=== PATIENT | male | born 1980 | race Hispanic/Latino ===

== ENCOUNTER 2023-07-20 19:02 | Emergency (ER) | payer SELFPAY ==
[2023-07-20] VITALS (10 sets, daily range): BP systolic 139–149; BP diastolic 95–106; PULSE 74–95; RESP 16–23; TEMP 36.1; O2SAT 94–100
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
--- NOTE | 2023-07-20 19:15 | PC.NURSE ---
ER Provider at the bedside
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
--- NOTE | 2023-07-20 19:30 | PC.NURSE ---
[facility] [employer] at the bedside
--- NOTE | 2023-07-20 19:35 | PC.NURSE ---
patient transported to radiology
[2023-07-20] MEDS: TETANUS,DIPHTHERIA,AC PERTUSSIS ADULT 0.5 ML (ADACEL) IM (19:51)
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
--- NOTE | 2023-07-20 20:30 | PC.NURSE ---
c collar removed by ed provider
--- NOTE | 2023-07-20 20:36 | PC.NURSE ---
blood pressure cuff not reading. adjusted cuff and restarted machine.
[2023-07-20] MEDS: LIDOCAINE HCL 1% LOCAL INJ 10 ML VIAL INFILTRATE (21:30)
--- NOTE | 2023-07-20 21:31 | PC.NURSE ---
lidocaine given to er provider for suture repair of left arm
--- NOTE | 2023-07-20 22:00 | PC.NURSE ---
ER provider at the bedside completing laceration repair
--- NOTE | 2023-07-20 22:13 | PC.NURSE ---
er provider aware of elevated blood pressures
--- NOTE | 2023-07-20 22:43 | PC.NURSE ---
ER provider remains at the bedside
--- NOTE | 2023-07-20 22:50 | PC.NURSE ---
dressing to left arm being placed by Miri borden
[2023-07-20] MEDS: NEOMYCIN/POLYMYXIN/BACITRACIN OINTMENT PACKET 2 PACKET TOPICAL (23:05)
== END 2023-07-20 23:08 | disposition home or self-care (01) ==
PROVIDERS: Emergency Provider Emergency Medicine
DX: S51.812A Laceration without foreign body of left forearm, initial encounter (principal); V68.0XXA Driver of heavy transport vehicle injured in noncollision transport accident in nontraffic accident, initial encounter; Z23 Encounter for immunization
CPT/HCPCS: 12001; 70450; 71045; 72125; 73090; 73110; 90471; 90715; 99284; L0150